=== PATIENT | male | born 1970 | race Caucasian/White ===

== ENCOUNTER 2019-10-05 05:52 | Emergency (ER) | payer OTHER, SELFPAY ==
[2019-10-05 05:59] VITALS: BP 170/100; PULSE 76; RESP 16; TEMP 36.7; O2SAT 98
--- NOTE | 2019-10-05 06:12 | ED.GENADUL_ITS ---
Discharge Plan Disposition Patient Disposition: HOME Condition: Good Discharge Details Chief Complaint: Orthopedic Clinical Impression: Acute pain of right knee Primary Care Provider: Chanell Howell ED Provider: Ayo Matthews Home Meds and New Rx's Prescriptions: No Action No Known Home Meds RF: 0 Discharge Instructions Instructions: Knee Pain (ED) Additional Instructions: At this time there is no evidence of fracture on the x-ray. Would recommend that you stay off the knee for the next 3 to 5 days. Use the crutches for this. Use the brace. Please take Tylenol and Motrin [id number], you can take 1000 mg of Tylenol every 6 hours and 800 mg of ibuprofen every 6 hours to help with this. Please continue to use the Vahe wrap on your knee, use ice as well. If your symptoms do not improve at all in the next 3 to 5 days with this conservative therapy you may require repeat imaging with a CAT scan that we discussed. If you notice any worsening of your symptoms, or any new symptoms such as vomiting, diarrhea, fever, chills, shortness of breath, chest pain, numbness, weakness, or fainting , please return immediately to the emergency department for reevaluation. Please follow up with your primary care provider as soon as possible for reassessment and reevaluation. As always, it was a pleasure participating in your medical care today. Stand Alone Forms: Work Release Referrals: Chanell Howell MD [Primary Care Provider] - Medical Decision Making 49-year-old male with no significant past medical history presents today for evaluation of right knee pain. 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 He denies any severe pain at that time, however throughout the day he developed increasing notable pain, significantly worsening with time. Pain is made worse when bearing weight, and walking. It was best when lying still in a slightly flexed position. He denies any redness, numbness, tingling, or other trauma. No other complaints at this time. No other modifying factors. He has not taken any medication for the pain yet. M demonstrates pain on palpation of the medial aspect of the right knee, reproducible, notably worse with weightbearing. Knee is stable to varus and valgus stressing, and is not made significantly more painful with the stressing excess during the actual palpation of the medial aspect of the knee. Patient does have good flexion and extension strength, but does have pain with both of these movements. Ezequiel's test is also positive. Differential includes mild meniscal injury, less likely significant ligamentous disruption. Tibial plateau fracture unlikely secondary to the nature of the incident, but certainly on the differential. Patient does not want Toradol shot at this time, we will give oral NSAIDs, get an x-ray monitor closely and reassess 7 AM X-ray results are negative for acute fracture. Patient feels notable improvement with a knee brace. Suspect ligamentous injury. I did discuss imaging options for the patient including a CT scan of the knee and at this time through notable discussion, weighing the risks and benefits, and a shared decision making process the patient has requested to hold off on imaging at this time. Patient is of an appropriate age to make decisions. The patient is of sound mind, appears clinically sober, and has capacity to make decisions by my clinical exam. Respecting the patient's wishes we will hold off on imaging. We will continue with conservative therapy of rest ice NSAIDs crutches and brace. Discussed that if he has no improvement over the next 3 to 5 days he may require further imaging including MRI or CT. He will follow-up with his PCP for this closely. I have extensively reviewed the treatment plan and discharge instructions with the patient. I have addressed all patient concerns at this time. The patient was made aware of what symptoms to monitor for that would warrant a return to the emergency department. Discussed the plan with the patient, they demonstrate verbal understanding and agreement with our assessment and plan at this time. FINDINGS: Bones/joints: SheThere are no acute fractures or dislocations. There are no focal bone lesions. Small knee joint effusion is suspected. Soft tissues: Normal. IMPRESSION: No acute fracture. Small knee joint effusion is suspected. Thank you for allowing us to participate in the care of your patient. Dictated and Authenticated by: Kelvin Chow HPI General Date/Time Provider Initiated Documentation: 10/05/19 05:53 . HPI Narrative: 49-year-old male with no significant past medical history presents today for evaluation of right knee pain. 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 He denies any severe pain at that time, however throughout the day he developed increasing notable pain, significantly worsening with time. Pain is made worse when bearing weight, and walking. It was best when lying still in a slightly flexed position. He denies any redness, numbness, tingling, or other trauma. No other complaints at this time. No other modifying factors. He has not taken any medication for the pain yet. Related Data Home Medications Medication Instructions Recorded Confirmed Unknown [No Known Home Meds] 11/28/18 10/05/19 Allergies Allergy/AdvReac Type Severity Reaction Status Date / Time No Known Allergies Allergy Verified 10/05/19 06:07 General Stated Complaint: Orthopedic FRANKIE: 4 Review of Systems All systems reviewed & are unremarkable except as noted in HPI and below PFSH Medical History Abnormal transaminases (Acute) Family History Mother , at 69 years Kidney disease Ovarian cancer Father Kidney disease Melanoma Prostate cancer Other Alcohol abuse Family history of prostate cancer Family history of uterine cancer Heart disease Hyperlipidemia Social History Smoking/Tobacco Use Status: Former Tobacco Use Tobacco: How many years used: 10 Alcohol Intake: current Alcohol Intake frequency: a few times a week Alcohol type: hard liquor Drug use: Never Substance use type: does not use Household members: spouse and children Number of Children: 3 Communication Needs: None 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 3.ENT: Atraumatic external nose and ears. Moist MM. Neck: Symmetric, trachea midline, No thyromegaly. 4.CVS: +S1/S2, No murmurs or gallops. Peripheral pulses 2+ and equal in all extremities. Brisk capillary refill in all extremities. 5.RESP: Unlabored respiratory effort. Clear to auscultation bilaterally. No wheezes rales or rhonchi 6.GI: Soft, Nontender/Nondistended, No hepatosplenomegaly. No guarding or rebound. 7.MSK: Normocephalic/Atraumatic, Extremities w/o deformity. No cyanosis or clubbing, Right knee: The knee is stable to varus, valgus, and anterior drawer stress. Pain is not made worse with varus or valgus stressing, however there is notable pain on palpation of the medial aspect of the knee during this testing. No deformity. Patellar grind test is negative. Ezequiel test is positive for notable worsening of pain on the medial aspect. Notable pain with weightbearing, notable limp secondary to this.. No edema or warmth to the joint. No ttp to the patella, or fibular head. Pain is present on palpation of the tibial plateau at the medial aspect of the knee. Good flexion and extension strength, however mild pain with these movements. Trace pitting edema of the lower extremities bilaterally. Good capillary refill and sensation throughout. 8.Skin: Warm, Dry. No rashes or lesions. 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 Sensation grossly intact, no focal neurologic deficits. 10.Psych: (AAO) x3. Appropriate mood and affect Course Vital Signs Vital signs: Vital Signs Temperature 36.7 C 10/05/19 05:59 Pulse 76 10/05/19 05:59 Respiratory Rate 16 10/05/19 05:59 Blood Pressure 170/100 H 10/05/19 05:59 Pulse Oximetry 98 10/05/19 05:59 Temperature 36.7 C 10/05/19 05:59 Temperature Source Temporal Artery Scan 10/05/19 05:59 Pulse 76 10/05/19 05:59 Respiratory Rate 16 10/05/19 05:59 Respiratory Effort Non-Labored 10/05/19 06:05 Blood Pressure 170/100 H 10/05/19 05:59 Blood Pressure Position Sitting 10/05/19 05:59 Pulse Oximetry 98 10/05/19 05:59 Oxygen Delivery Method Room Air 10/05/19 05:59 Oxygen Flow Rate 0 10/05/19 05:59 Pain Level 8 10/05/19 06:05
[2019-10-05] MEDS: Ibuprofen 800 MG TAB PO (06:18)
[2019-10-05] MEDS: Acetaminophen 500 MG TAB 1000 MG PO (06:18)
[2019-10-05] MEDS: Lidocaine 5% Patch 1 PATCH TP (06:19)
--- NOTE | 2019-10-05 06:32 | DI.RAD_ITS ---
EXAM: XR KNEE RT 3V AP,LAT,MEGHA CLINICAL HISTORY: medial knee pain, eval tibial plateau. TECHNIQUE: 2D digital imaging was performed. COMPARISON: No exams were available for comparison FINDINGS: BONES: No acute fracture is visualized. No bony destructive lesion is seen. JOINTS: The knee is normally aligned. A joint effusion is seen. There are mild to moderate degenerati ve changes. SOFT TISSUE: Normal. IMPRESSION: Degenerative changes and joint effusion. No visible fracture. If there is further clinical concern, a CT could be performed. DATA REPOSITORY: RADIATION DOSE DELIVERED:
--- NOTE | 2019-10-05 06:46 | DI.VRAD_ITS ---
PROCEDURE INFORMATION: Exam: XR Right Knee Exam date and time: 10/05/2019 6:22 AM Age: 49 years old Clinical indication: Pain; Knee; Right; Additional info: Pain x1 day TECHNIQUE: Imaging protocol: XR Right knee. Views: 3 views. COMPARISON: No relevant prior studies available. FINDINGS: Bones/joints: SheThere are no acute fractures or dislocations. There are no focal bone lesions. Small knee joint effusion is suspected. Soft tissues: Normal. IMPRESSION: No acute fracture. Small knee joint effusion is suspected. Dictated and Authenticated by: Kelvin Chow MD. Ordering:FREYA Rollins MD
== END 2019-10-05 07:25 | disposition home or self-care (01) ==
LOC: ER 07:40
PROVIDERS: Emergency Provider Student in an Organized Health Care Education/Training Program; PCP Internal Medicine
DX: M25.561 Pain in right knee (principal); W17.89XA Other fall from one level to another, initial encounter
CPT/HCPCS: 29505; 73562; 99283; E0114; L1810

== ENCOUNTER 2019-10-07 10:50 | Outpatient (CLI) | payer OTHER, SELFPAY ==
[2019-10-09 07:32] LABS: COVID-19 RT-PCR Result NEGATIVE (Negative)
== END 2019-10-07 11:10 ==
PROVIDERS: PCP Internal Medicine; Visit Provider Nurse Practitioner
DX: Z11.59 Encounter for screening for other viral diseases (principal)
CPT/HCPCS: U0003

== ENCOUNTER 2019-12-25 03:00 | Outpatient (CLI) | payer OTHER, SELFPAY ==
--- NOTE | 2019-12-25 07:45 | DI.MRI_ITS ---
EXAM: MR LOWER JOINT RT WO CLINICAL HISTORY: R KNEE PAIN, mcl sprain rt knee, S93.411A. TECHNIQUE: Multiplanar multisequence MRI was performed. COMPARISON: CR,XR XR KNEE RT 3V AP,LAT,MEGHA from 10/05/2019 FINDINGS: BONES: There is no fracture or contusion pattern. JOINTS: Mild increased signal in the articular cartilage overlying the medial femoral condyle. Small joint effusion. TENDONS: Extensor mechanism: Unremarkable. Medial retinaculum: Unremarkable. Lateral retinaculum: Unremarkable. Popliteus: Intermediate signal seen within the popliteus tendon which may represent tendinopathy. MUSCLES: Unremarkable. MENISCI: Tear of the body of the medial meniscus. The lateral meniscus is unremarkable. SOFT TISSUES: Edema seen in the subcutaneous tissues anterior to the patella. LIGAMENTS: Anterior Cruciate: Unremarkable. Posterior Cruciate: Unremarkable. Medial Collateral:Unremarkable. Lateral Collateral: Unremarkable. OTHER: IMPRESSION: 1. Tear of the body of the medial meniscus. 2. No evidence of a ligament tear. 3. Intermediate signal seen in the popliteus tendon which may represent tendinopathy. 4. 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 DATA REPOSITORY:
== END 2019-12-25 03:20 ==
PROVIDERS: PCP Internal Medicine; Visit Provider Orthopaedic Surgery
DX: S83.241A Other tear of medial meniscus, current injury, right knee, initial encounter (principal); M94.261 Chondromalacia, right knee
CPT/HCPCS: 73721

== ENCOUNTER 2020-04-03 04:32 | Outpatient (CLI) | payer OTHER, SELFPAY ==
[2020-04-06 15:52] LABS: COVID-19 RT-PCR Result NEGATIVE (Negative)
== END 2020-04-03 04:52 ==
PROVIDERS: PCP Internal Medicine; Visit Provider Internal Medicine
DX: Z20.828 Contact with and (suspected) exposure to other viral communicable diseases (principal)
CPT/HCPCS: U0003

== ENCOUNTER 2020-04-28 02:53 | Outpatient (CLI) | payer OTHER, SELFPAY ==
[2020-04-29 19:31] LABS: COVID-19 RT-PCR UVMMC Result Negative (Negative)
== END 2020-04-28 03:13 ==
PROVIDERS: PCP Internal Medicine; Visit Provider Student in an Organized Health Care Education/Training Program
DX: Z11.59 Encounter for screening for other viral diseases (principal); Z01.818 Encounter for other preprocedural examination
CPT/HCPCS: U0003

== ENCOUNTER 2020-05-01 06:08 | Day surgery (SDC) | payer OTHER, SELFPAY ==
[2020-05-01] VITALS (7 sets, daily range): BP systolic 108–134; BP diastolic 64–93; PULSE 57–72; RESP 16–20; TEMP 36.2–37; O2SAT 96–98
[2020-05-01] MEDS: Lactated Ringers 1,000 ML 100 ML IV (06:58)
[2020-05-01] MEDS: Bupivacaine 0.25% Pres-Free 30 ML VIAL (08:01)
[2020-05-01] MEDS: EPINEPHrine 1 MG/ML AMP pres-free (08:02)
[2020-05-01] MEDS: EPINEPHrine 30 MG/30 ML VIAL (08:03)
--- NOTE | 2020-05-01 08:54 | W.PM.DSUDISC ---
Discharge Plan Disposition Patient Disposition: HOME Condition: Stable Discharge Details Reason For Visit: Right knee surgery Attending Provider: Desmond Rendon Primary Care Provider: Chanell Howell Home Meds and New Rx's Prescriptions: New aspirin 81 mg tablet,delayed release (DR/EC) 81 mg PO DAILY 14 Days Qty: 14 RF: 0 naproxen 250 mg tablet 250 - 500 mg PO BID PRN (Reason: Moderate pain or swelling) Qty: 60 RF: 0 oxycodone 5 mg tablet 5 - 10 mg PO Q4H PRN (Reason: moderate to severe pain) Qty: 12 RF: 0 Continued amlodipine 5 mg tablet 5 mg PO DAILY Qty: 90 RF: 0 Discharge Instructions Additional Instructions: Surgery: Knee arthroscopy with partial medial meniscectomy and synovectomy Activity: Weightbearing as tolerated. Advance range of motion as comfort allows. Important to restore full extension. No deep weighted knee flexion for 6 weeks. Recommend avoiding cutting, pivoting, sports, or squatting for 2 months. A physical therapy prescription will be sent electronically to start in 2 to 3 weeks. Prescriptions: Aspirin 81 mg take 1 daily to prevent a blood clot for 2 weeks Naproxen 250 mg take 1-2 every 12 hours with a meal as needed for moderate pain or swelling Oxycodone 5 mg take 1-2 every 4-6 hours as needed for severe pain You may use [id number] Tylenol (acetaminophen) as needed for mild pain. These pain medications may be taken all at once or in different combinations as needed. Also, recommend Colace (docusate) as a stool softener as surgery and pain medicine cause constipation. Dressings: Leave dressing in place for 2-3 days. May then remove and leave open to air or cover incisions with Band-Aids. May shower after 5 days. Follow-up: 10-[address] Rendon Let us know right away if you develop any redness, drainage, fevers, chest pain, or trouble breathing. Do not drink alcohol or drive for at least 24 hours after anesthesia. Please call the office during business hours with any questions or concerns. Referrals: Desmond Rendon MD [ [facility] STAFF PHYSICIAN] - Discharge Orders Discharge Orders: Discharge Order (Routine); Ordered 05/01/20 Ordered By: Desmond Rendon DS: Diagnosis Discharge Diagnosis (1) Tear of cartilage of right knee: Status: Acute (2) Torn medial meniscus: Status: Acute
--- NOTE | 2020-05-01 09:03 | ROE_ITS ---
Date of service: 05/01/20 Time of Service: 08:54 Operative Note Operative Note DATE OF PROCEDURE: 05/01/20 PRE-OP DIAGNOSIS: Right 1. Medial meniscus tear 2. Synovitis 3. Chondromalacia POST-OP DIAGNOSIS: same PROCEDURE: Right 1. Partial medial meniscectomy, CPT #08008 2. Greater than 2 compartment synovectomy, CPT #68994: Anteromedial, anterolateral, patellofemoral, and medial gutter SURGEON: Desmond Rendon DIMPLING MACHINE OPERATOR: None None ANESTHESIA: GETA and local ESTIMATED BLOOD LOSS: 5 PATHOLOGY: none sent TOURNIQUET TIME: 0 Patient was transported to: PACU Patient's condition: stable Indications: Please see complete medical record for details. Findings: Extensive synovitis patellofemoral compartment, medial gutter and medial gutter plica, anteromedial anterolateral. Cartilage thinning and fibrillations grade 1 2 medial femoral condyle diffusely. Grade 1 to central medial patella undersurface. Approximately 7 x 4 mm near full-thickness cartilage defect medial central trochlea. Intact lateral compartment. Complex, horizontal radial with multiple flaps of superior leaflet posterior horn medial meniscal body junction tear. Intact lateral meniscus, intact ACL. Procedure Description: In the operating room, genral anesthesia was induced. The patient was positioned supine on the operating room table. All bony prominences were well-padded. Preoperative antibiotics were administered. The knee was prepped and draped in the usual sterile fashion. The correct patient, procedure, and side of the procedure were all verified prior to incision. Exam under anesthesia was performed. 10 cc of 0.25% bupivacaine containing epinephrine was infiltrated about the anterior medial and anterior lateral knee arthroscopy portals. The portals were established and a complete diagnostic arthroscopy was performed with relevant findings detailed above. The mechanical shaver was used to perform plica removal of the medial gutter. Shaver was then used to remove pathologic impinging synovium anteromedial and anterolaterally as well as engaging patellofemoral compartment. Attention was then turned to the injured medial meniscus tissue. It was probed and superior leaflet fragments were unstable, significantly frayed, and not amendable to repair. Using a combination of hand instruments including meniscal biters and a power shaver and working through the anteromedial and anterolateral compartments the meniscus was debrided of all torn tissue to a stable margin. Care was taken to preserve as much meniscus tissue was possible. The meniscal remnant was probed and found to have a stable margin, stable root, and no other tears. Under direct arthroscopic visualization an 18-gauge needle was passed into the knee from superior lateral to the superior patellar pouch. The knee was copiously irrigated with arthroscopic fluid until there was a clear effluent before being drained of all fluid. The anteromedial anterolateral portals were closed in 3-0 Monocryl in a buried interrupted fashion. 20 cc of 0.25% bupivacaine with epinephrine containing 4 mg of morphine was infiltrated into the knee through the previously placed needle. Mastisol, Steri-Strips, dry 4 x 4 gauze, and sterile soft roll wrapped about the knee. The right lower extremity was then wrapped in a gentle compressive Vahe bandage. The patient awoke from anesthesia without complication and was transferred to the recovery room in a stable condition.
[2020-05-01] MEDS: fentaNYL 100 MCG/2 ML VIAL IVP (09:25)
== END 2020-05-01 11:40 | disposition home or self-care (01) ==
PROVIDERS: PCP Internal Medicine; Visit Provider Student in an Organized Health Care Education/Training Program
PROC: (CPT 29870; principal; 2020-05-01 07:30)
DX: S83.231A Complex tear of medial meniscus, current injury, right knee, initial encounter (principal); M67.51 Plica syndrome, right knee; Y99.0 Civilian activity done for income or pay; X50.0XXA Overexertion from strenuous movement or load, initial encounter
CPT/HCPCS: 29876; 29881; J0171; J0690; J1100; J1885; J2250; J2405; J2704; J3010

== ENCOUNTER 2020-06-17 09:26 | Outpatient (REF) | payer OTHER, SELFPAY ==
[2020-06-17 16:16] LABS: Anion Gap 11.2 mmol/L (3-11); BUN 16 mg/dL (7-18); CO2 25.8 mmol/L (21.0-32.0); CREATININE 1.1 mg/dL (0.70-1.30); Calcium 9.1 mg/dL (8.5-10.1); Chloride 102 mmol/L (98-107); Glucose 131 mg/dL (74-106); Potassium 4.3 mmol/L (3.5-5.1); Sodium 139 mmol/L (136-145)
== END 2020-06-17 09:27 | disposition home or self-care (01) ==
LOC: LBN 09:26
PROVIDERS: PCP Internal Medicine; Visit Provider Nurse Practitioner Adult Health
DX: I10 Essential (primary) hypertension (principal)
CPT/HCPCS: 80048

== ENCOUNTER 2021-05-11 20:24 | Outpatient (CLI) | payer OTHER, SELFPAY ==
--- NOTE | 2021-05-11 10:15 | DI.RAD_ITS ---
Exam(s) XR ANKLE RT COMPLETE EXAM: XR ANKLE RT COMPLETE CLINICAL HISTORY: pain, s/p fall 05/09/21, W19.XXXA, M25.571. TECHNIQUE: 2D digital imaging was performed. COMPARISON: No exams were available for comparison FINDINGS: There is soft tissue swelling on both sides of the ankle. No evidence of acute fracture. There are degenerative changes. There also appears to be an osteochondral defect nor subarticular cyst at the anterior aspect of the ankle joint. There is a 4 x 4 millimeter calcific density noted posteriorly, slightly higher than expected for os trigonum and this may be an intra-articular body. Talar dome is otherwise unremarkable. There is no widening of the ankle mortise. Small inferior calcaneal spur i s noted. No calcification in the plantar fascia. IMPRESSION: Degenerative findings as above. Possible osteochondral defect and loose intra-articular body posteri andrew. DATA REPOSITORY: RADIATION DOSE DELIVERED:
== END 2021-05-11 20:44 ==
PROVIDERS: PCP Internal Medicine; Visit Provider Nurse Practitioner
DX: M25.571 Pain in right ankle and joints of right foot (principal); W19.XXXA Unspecified fall, initial encounter; M19.071 Primary osteoarthritis, right ankle and foot
CPT/HCPCS: 73610

== ENCOUNTER 2022-12-21 02:01 | Outpatient (CLI) | payer OTHER, SELFPAY ==
[2022-12-21 07:51] LABS: Anion Gap 9.6 mmol/L (3-11); BUN 22 mg/dL (7-18); CO2 25.4 mmol/L (21.0-32.0); CREATININE 1.2 mg/dL (0.70-1.30); Calculated LDL 157 mg/dL (<100); Chloride 105 mmol/L (98-107); Cholesterol 220 mg/dL (<200); Estimated GFR 73.22 (mL/min/1.73m2); Glucose 111 mg/dL (74-106); HDL Cholesterol 32 mg/dL (40-60); Potassium 4.5 mmol/L (3.5-5.1); Sodium 140 mmol/L (136-145); Triglyceride 158 mg/dL (<150)
[2022-12-21 21:34] LABS: PSA, Screening 0.6 ng/mL (<=3.5)
[2022-12-22 09:35] LABS: Hepatitis C Ab w Rflx HCV PCR Negative (Negative)
[2022-12-22 09:48] LABS: HIV-1/2 Ag & Ab Screen Negative (Negative)
== END 2022-12-21 02:02 | disposition home or self-care (01) ==
LOC: LBO 02:01
PROVIDERS: PCP Nurse Practitioner Adult Health; Visit Provider Nurse Practitioner Adult Health
DX: I10 Essential (primary) hypertension (principal); Z13.1 Encounter for screening for diabetes mellitus; Z13.220 Encounter for screening for lipoid disorders; Z11.4 Encounter for screening for human immunodeficiency virus [HIV]; Z11.59 Encounter for screening for other viral diseases; Z12.5 Encounter for screening for malignant neoplasm of prostate
CPT/HCPCS: 36415; 80048; 80061; 84153; 86803; 87389

== ENCOUNTER 2023-10-25 13:31 | Outpatient (REF) | payer OTHER, SELFPAY ==
[2023-10-25 15:54] LABS: COMMENT (LAB VIEW ONLY) 81.64 mg/dL; Microalb ug/mg Crea 4.2 ug/mg Cr
== END 2023-10-25 13:32 | disposition home or self-care (01) ==
LOC: LBN 13:31
PROVIDERS: PCP Nurse Practitioner Adult Health; Referring Provider Nurse Practitioner Adult Health; Visit Provider Nurse Practitioner Adult Health
DX: I10 Essential (primary) hypertension (principal); Q61.2 Polycystic kidney, adult type; Z82.71 Family history of polycystic kidney; E66.8 Other obesity; Z68.39 Body mass index [BMI] 39.0-39.9, adult
CPT/HCPCS: 82043; 82570

== ENCOUNTER 2024-07-24 12:40 | Outpatient (REF) | payer OTHER, SELFPAY ==
[2024-07-24 16:45] LABS: Anion Gap 9.7 mmol/L (3-11); BUN 15 mg/dL (7-18); CO2 26.3 mmol/L (21.0-32.0); CREATININE 1.2 mg/dL (0.70-1.30); Calcium 9.2 mg/dL (8.5-10.1); Chloride 105 mmol/L (98-107); Estimated GFR 72.31 (mL/min/1.73m2); Glucose 128 mg/dL (74-106); Potassium 4.6 mmol/L (3.5-5.1); Sodium 141 mmol/L (136-145)
[2024-07-24 22:46] LABS: PSA, Screening 0.7 ng/mL (<=3.5)
== END 2024-07-24 12:41 | disposition home or self-care (01) ==
LOC: LBN 12:40
PROVIDERS: PCP Nurse Practitioner Adult Health; Visit Provider Nurse Practitioner Adult Health
DX: Z12.5 Encounter for screening for malignant neoplasm of prostate (principal); Z13.1 Encounter for screening for diabetes mellitus; Z82.71 Family history of polycystic kidney; I10 Essential (primary) hypertension; Z68.39 Body mass index [BMI] 39.0-39.9, adult; Q61.3 Polycystic kidney, unspecified; Z80.42 Family history of malignant neoplasm of prostate
CPT/HCPCS: 80048; 84153